=== PATIENT | female | born 1980 | race Caucasian/White ===

== ENCOUNTER 2017-08-08 17:25 | Emergency (ER) | payer BC ==
[2017-08-08 17:37] VITALS: TEMP 99
[2017-08-08] MEDS ORDERED: RX INFO: IV CONTRAST WAS GIVEN 1 EACH MISC MISCELLANE PRN (17:44)
[2017-08-08] MEDS ORDERED: SODIUM CHLORIDE 0.9% 500 ML IV STA (17:44)
[2017-08-08 17:47] VITALS: RESP 16
[2017-08-08] MEDS ORDERED: MORPHINE SULFATE/PF 10MG/10ML VL IVP STA (18:16)
[2017-08-08] MEDS ORDERED: ONDANSETRON 4 MG/2 ML VIAL IVP STA (18:16)
[2017-08-08 18:32] LABS: Appearance,Urine Clear (Clear); Bilirubin,Urine Negative (Negative); Blood,Urine Moderate (Negative); Color,Urine Yellow; Glucose,Urine (UA) Negative (Negative); Ketones,Urine Negative (Negative); Leukocyte Esterase,Urine Negative (Negative); Nitrite,Urine Negative (Negative); PH, Urine 6.5 (5.0-8.0); Protein,Urine Negative (Negative); RBC,Urine >182 /hpf (0-5); Specific Gravity,Urine 1.012 (1.001-1.035); Squamous Epithelial Cell,Urine <1 /hpf (0-4); Urobilinogen,Urine <2.0 mg/dL (<2.0); WBC,Urine 4 /hpf (0-5)
[2017-08-08 18:40] LABS: Basophils % (A) 1 %; Eosinophils # (A) 0.1 k/uL (0-0.7); Eosinophils % (A) 2 %; HCT 35.3 % (34.0-46.0); HGB 11.1 gm/dL (11.4-16.0); Hypochromasia Slight; Lymphocytes # (A) 1.1 k/uL (1.0-4.8); Lymphocytes % (A) 23 %; MCHC 31.5 g/dL (31.0-37.0); MCV 79.3 fL (80.0-100.0); Mean Platelet Volume 7.9; Monocytes # (A) 0.6 k/uL (0-1.0); Monocytes % (A) 14 %; Neutrophils # (A) 2.6 k/uL (1.3-7.7); Neutrophils % (A) 56 %; Platelet Count 244 k/uL (150-450); RBC 4.45 m/uL (3.80-5.40); RDW 14.7 % (11.5-15.5); WBC 4.6 k/uL (3.8-10.6)
[2017-08-08 18:49] LABS: ALT 79 U/L (9-52); AST 57 U/L (14-36); Albumin 4.1 g/dL (3.5-5.0); Alkaline Phosphatase 81 U/L (38-126); Amylase 91 U/L (30-110); Anion Gap 15 mmol/L; Blood Urea Nitrogen 13 mg/dL (7-17); Calcium 8.9 mg/dL (8.4-10.2); Carbon Dioxide 20 mmol/L (22-30); Chloride 106 mmol/L (98-107); Glucose 88 mg/dL (74-99); Lipase 175 U/L (23-300); Sodium 141 mmol/L (137-145); Total Bilirubin 0.2 mg/dL (0.2-1.3); Total Protein 7.4 g/dL (6.3-8.2)
--- NOTE | 2017-08-08 19:16 | ED ---
Abdominal Pain HPI - General Chief Complaint: Abdominal Pain Stated Complaint: poss appendicitis Time Seen by Provider: 08/08/17 17:43 Source: patient, RN notes reviewed Mode of arrival: wheelchair Limitations: no limitations - History of Present Illness Initial Comments: 37-year-old female presents emergency Department with chief complaint of abdominal pain. She states she's been having some worsening pain in the right side. She states that the last 2 days and worse. She states she fell that she had a fever at home. Does admit to some nausea no vomiting no diarrhea no constipation. No dysuria, hematuria. Patient states that she's had a prior ovarian cysts in the past but nothing recent. Patient states that she's had 2 prior sections denies any chance currently in mental cycle. No history kidney stones. - Related Data Home Medications Medication Instructions Recorded Confirmed Ibuprofen [Motrin Ib] 400 mg PO Q6H PRN 08/08/17 08/08/17 Previous Rx's Medication Instructions Recorded Hydrocodone/Acetaminophen [[place] 1 tab PO Q6HR PRN #20 tab 08/08/17 5-325] Ibuprofen [Motrin] 600 mg PO Q8HR PRN #30 tab 08/08/17 Allergies Allergy/AdvReac Type Severity Reaction Status Date / Time bacitracin Allergy Rash/Hives Verified 08/08/17 18:05 [From Neosporin ([id number])] neomycin Allergy Rash/Hives Verified 08/08/17 18:05 [From Neosporin ([id number])] polymyxin B Allergy Rash/Hives Verified 08/08/17 18:05 [From Neosporin ([id number])] Review of Systems ROS Statement: Those systems with pertinent positive or pertinent negative responses have been documented in the HPI. ROS Other: All systems not noted in ROS Statement are negative. Past Medical History Past Medical History: No Reported History History of Any Multi-Drug Resistant Organisms: None Reported Past Surgical History: Section Additional Past Surgical History / Comment(s): wisdom teeth removal Past Psychological History: No Psychological Hx Reported Smoking Status: Never smoker Past Alcohol Use History: Occasional Past Drug Use History: None Reported General Exam Limitations: no limitations General appearance: alert, in no apparent distress Head exam: Present: atraumatic, normocephalic, normal inspection Respiratory exam: Present: normal lung sounds bilaterally. Absent: respiratory distress, wheezes, rales, rhonchi, stridor Cardiovascular Exam: Present: regular rate, normal rhythm, normal heart sounds. Absent: systolic murmur, diastolic murmur, rubs, gallop, clicks GI/Abdominal exam: Present: soft, tenderness (Moderate tenderness right lower quadrant), normal bowel sounds. Absent: distended, guarding, rebound, rigid Back exam: Absent: CVA tenderness (R), CVA tenderness (L) Skin exam: Present: warm, dry, intact, normal color. Absent: rash Course Vital Signs 08/08/17 08/08/17 17:33 17:46 Temperature 99 F Pulse Rate 101 H 94 Respiratory 18 16 Rate Blood Pressure 145/79 149/97 O2 Sat by Pulse 100 99 Oximetry Medical Decision Making - Medical Decision Making 37-year-old female presents from for right-sided abdominal pain. Patient states she's had pain for last couple weeks for worsen or last few days. She states it does wax and wane. She does feel improved at this time CT shows evidence of ovarian cyst no evidence of acute appendicitis. Patient given pain medication advised follow-up with [employer]. - Lab Data Result diagrams: 08/08/17 18:23 08/08/17 18:23 Lab Results 08/08/17 08/08/17 08/08/17 Range/Units 18:20 18:20 18:23 WBC (3.8-10.6) k/uL RBC (3.80-5.40) m/uL Hgb (11.4-16.0) gm/dL Hct (34.0-46.0) % MCV (80.0-100.0) fL MCH (25.0-35.0) pg MCHC (31.0-37.0) g/dL RDW (11.5-15.5) % Plt Count (150-450) k/uL Neutrophils % % Lymphocytes % % Monocytes % % Eosinophils % % Basophils % % Neutrophils # (1.3-7.7) k/uL Lymphocytes # (1.0-4.8) k/uL Monocytes # (0-1.0) k/uL Eosinophils # (0-0.7) k/uL Basophils # (0-0.2) k/uL Hypochromasia Sodium 141 (137-145) mmol/L Potassium 4.0 (3.5-5.1) mmol/L Chloride 106 (98-107) mmol/L Carbon Dioxide 20 L (22-30) mmol/L Anion Gap 15 mmol/L BUN 13 (7-17) mg/dL Creatinine 0.80 (0.52-1.04) mg/dL Est GFR (CKD-EPI)AfAm >90 (>60 ml/min/1.73 sqM) Est GFR (CKD-EPI)NonAf >90 (>60 ml/min/1.73 sqM) Glucose 88 (74-99) mg/dL Calcium 8.9 (8.4-10.2) mg/dL Total Bilirubin 0.2 (0.2-1.3) mg/dL AST 57 H (14-36) U/L ALT 79 H (9-52) U/L Alkaline Phosphatase 81 (38-126) U/L Total Protein 7.4 (6.3-8.2) g/dL Albumin 4.1 (3.5-5.0) g/dL Amylase 91 (30-110) U/L Lipase 175 (23-300) U/L Urine Color Yellow Urine Appearance Clear (Clear) Urine pH 6.5 (5.0-8.0) Ur Specific [place] 1.012 (1.001-1.035) Urine Protein Negative (Negative) Urine Glucose (UA) Negative (Negative) Urine Ketones Negative (Negative) Urine Blood Moderate H (Negative) Urine Nitrite Negative (Negative) Urine Bilirubin Negative (Negative) Urine Urobilinogen <2.0 (<2.0) mg/dL Ur Leukocyte Esterase Negative (Negative) Urine RBC >182 H (0-5) /hpf Urine WBC 4 (0-5) /hpf Ur Squamous Epith Cells <1 (0-4) /hpf Urine HCG, Qual Not Detected (Not Detectd) 08/08/17 Range/Units 18:23 WBC 4.6 (3.8-10.6) k/uL RBC 4.45 (3.80-5.40) m/uL Hgb 11.1 L (11.4-16.0) gm/dL Hct 35.3 (34.0-46.0) % MCV 79.3 L (80.0-100.0) fL MCH 25.0 (25.0-35.0) pg MCHC 31.5 (31.0-37.0) g/dL RDW 14.7 (11.5-15.5) % Plt Count 244 (150-450) k/uL Neutrophils % 56 % Lymphocytes % 23 % Monocytes % 14 % Eosinophils % 2 % Basophils % 1 % Neutrophils # 2.6 (1.3-7.7) k/uL Lymphocytes # 1.1 (1.0-4.8) k/uL Monocytes # 0.6 (0-1.0) k/uL Eosinophils # 0.1 (0-0.7) k/uL Basophils # 0.0 (0-0.2) k/uL Hypochromasia Slight Sodium (137-145) mmol/L Potassium (3.5-5.1) mmol/L Chloride (98-107) mmol/L Carbon Dioxide (22-30) mmol/L Anion Gap mmol/L BUN (7-17) mg/dL Creatinine (0.52-1.04) mg/dL Est GFR (CKD-EPI)AfAm (>60 ml/min/1.73 sqM) Est GFR (CKD-EPI)NonAf (>60 ml/min/1.73 sqM) Glucose (74-99) mg/dL Calcium (8.4-10.2) mg/dL Total Bilirubin (0.2-1.3) mg/dL AST (14-36) U/L ALT (9-52) U/L Alkaline Phosphatase (38-126) U/L Total Protein (6.3-8.2) g/dL Albumin (3.5-5.0) g/dL Amylase (30-110) U/L Lipase (23-300) U/L Urine Color Urine Appearance (Clear) Urine pH (5.0-8.0) Ur Specific [place] (1.001-1.035) Urine Protein (Negative) Urine Glucose (UA) (Negative) Urine Ketones (Negative) Urine Blood (Negative) Urine Nitrite (Negative) Urine Bilirubin (Negative) Urine Urobilinogen (<2.0) mg/dL Ur Leukocyte Esterase (Negative) Urine RBC (0-5) /hpf Urine WBC (0-5) /hpf Ur Squamous Epith Cells (0-4) /hpf Urine HCG, Qual (Not Detectd) Disposition Clinical Impression: Ovarian cyst Disposition: HOME SELF-CARE Condition: Stable Instructions: Ovarian Cyst (ED) Additional Instructions: Please return to the Emergency Department if symptoms worsen or any other concerns. Prescriptions: Hydrocodone/Acetaminophen [[place] 5-325] 1 tab PO Q6HR PRN #20 tab PRN Reason: Pain Ibuprofen [Motrin] 600 mg PO Q8HR PRN #30 tab PRN Reason: Pain Referrals: Adrian Martinez DO [Primary Care Provider] - 1-2 days Time of Disposition: 19:41
--- NOTE | 2017-08-08 19:24 | CT ---
EXAMINATION TYPE: CT abdomen pelvis w con DATE OF EXAM: 08/08/2017 COMPARISON: NONE HISTORY: Right lower quadrant pain CT DLP: mGycm Automated exposure control for dose reduction was used. TECHNIQUE: Helical acquisition of images was performed from the lung bases through the pelvis. CONTRAST: IV contrast Isovue 100 mL. FINDINGS: Lung bases are clear. There is no pleural effusion. There is no pericardial effusion. Liver spleen pancreas gallbladder appear normal. Bile ducts are not dilated. There is no adrenal mass. Kidneys show satisfactory contrast opacification. There is no hyd ronephrosis. There is no retroperitoneal adenopathy. I see no intestinal wall thickening. There are no dilated loops. Uterus is anteverted. Lumbar spine i s intact. I see no bony destructive process. There is no ascites. There is no sign of a pelvic mass. The appendix appears normal. There is a 1.5 c m cyst on the right ovary. There is no evidence of a hernia. IMPRESSION: NEGATIVE CT SCAN OF THE ABDOMEN AND PELVIS. NORMAL APPENDIX. I DO NOT SEE A CAUSE FOR RIGHT LOWER JIN DRANT PAIN.
[2017-08-08 19:55] VITALS: BP 104/65; PULSE 75
== END 2017-08-08 19:55 | disposition home or self-care (01) ==
LOC: EC 17:25
DX: N83.201 Unspecified ovarian cyst, right side (principal); Z88.1 Allergy status to other antibiotic agents
CPT/HCPCS: 36415; 80053; 82150; 83690; 85025; 81001; 81025; 74177; 99284; 96374; 96375; J2405; Q9967; J2270

== ENCOUNTER 2017-08-26 18:00 | Emergency (ER) | payer BC ==
[2017-08-26 18:16] VITALS: PULSE 86; RESP 20; TEMP 97.8
[2017-08-26] MEDS ORDERED: KETOROLAC 30 MG/ML 1 ML VIAL IVP STA (18:42)
--- NOTE | 2017-08-26 18:46 | ED ---
Abdominal Pain HPI - General Chief Complaint: Abdominal Pain Stated Complaint: abd pain Time Seen by Provider: 08/26/17 18:30 Source: patient, RN notes reviewed Mode of arrival: ambulatory Limitations: no limitations - History of Present Illness Initial Comments: This is a 37-year-old female who presents to the emergency department with chief complaint of abdominal pain. Patient states that she was evaluated last month here in the emergency department for right lower quadrant abdominal pain. She states that she was diagnosed with a right ovarian cyst. She followed up with her COMPUTER FIELD TECHNICIAN, Dr. Baum and had an ultrasound performed last . Patient states that her right lower quadrant pain has progressively worsened throughout the day today. She states that now the pain involves the LLQ as well. She describes it as constant and crampy with intermittent sharp shooting pains that radiate to her inner thighs. She states the pain is made worse with any movement. Last menstrual period was August 04. Denies fevers or chills, shortness of breath or chest pain, nausea or vomiting, diarrhea or constipation , dysuria or hematuria. - Related Data Previous Rx's Medication Instructions Recorded Hydrocodone/Acetaminophen [[place] 1 tab PO Q6HR PRN #20 tab 08/08/17 5-325] Ibuprofen [Motrin] 600 mg PO Q8HR PRN #30 tab 08/08/17 Allergies Allergy/AdvReac Type Severity Reaction Status Date / Time bacitracin Allergy Rash/Hives Verified 08/26/17 19:14 [From Neosporin ([id number])] neomycin Allergy Rash/Hives Verified 08/26/17 19:14 [From Neosporin ([id number])] polymyxin B Allergy Rash/Hives Verified 08/26/17 19:14 [From Neosporin ([id number])] Review of Systems ROS Statement: Those systems with pertinent positive or pertinent negative responses have been documented in the HPI. ROS Other: All systems not noted in ROS Statement are negative. Past Medical History Past Medical History: No Reported History History of Any Multi-Drug Resistant Organisms: None Reported Past Surgical History: Section Additional Past Surgical History / Comment(s): wisdom teeth removal Past Psychological History: No Psychological Hx Reported Smoking Status: Never smoker Past Alcohol Use History: Occasional Past Drug Use History: None Reported General Exam - General Exam Comments Initial Comments: General: Awake and alert, well-developed; in no apparent distress. Lying in the position on ED stretcher. HEENT: Head atraumatic, normocephalic. Pupils are equal, round and reactive to light. Extraocular movements intact. Oropharynx moist without erythema or exudate. Neck: Supple. Normal ROM. Cardiovascular: Regular rate and rhythm. No murmurs, rubs or gallops. Chest symmetrical. Respiratory: Lungs clear to auscultation bilaterally. No wheezes, rales or rhonchi. Normal respiratory effort with no use of accessory muscles. Abdomen: Soft, non-distended. Tenderness on palpation of right lower quadrant with guarding. No rebound or rigidity. Normal bowel sounds in all 4 quadrants. Musculoskeletal: Normal ROM, no tenderness bilateral upper and lower extremities. Skin: [employer], warm and dry without rashes or lesions. Neurological: Alert and oriented x3. CN II-XII grossly intact. Speech is fluent and answers are appropriate. No focal neuro deficits. Psychiatric: Normal mood and affect. No overt signs of depression or anxiety noted. Limitations: no limitations Course Vital Signs 08/26/17 08/26/17 18:13 20:27 Temperature 97.8 F Pulse Rate 86 Respiratory 20 Rate Blood Pressure 139/82 106/66 O2 Sat by Pulse 99 Oximetry Medical Decision Making - Medical Decision Making This is a 37-year-old female who presents to the emergency department with chief complaint of pelvic pain. Patient was diagnosed with a right ovarian cyst on 08/08/2017. She followed up with OB and an ultrasound was obtained last . She was diagnosed with a complex cyst of the left ovary. Today patient complains of right lower and left lower quadrant pain. A transvaginal ultrasound was repeated. This revealed evidence for a nonspecific left ovarian cyst without evidence for torsion. Patient's vital signs are stable and she is in no acute distress. She'll be discharged home at this time. Recommended following up with her COMPUTER FIELD TECHNICIAN. She is in agreement voices understanding. All questions were answered. - Lab Data Result diagrams: 08/26/17 19:00 08/26/17 19:00 Lab Results 08/26/17 08/26/17 08/26/17 Range/Units 19:00 19:00 19:00 WBC 7.5 (3.8-10.6) k/uL RBC 4.54 (3.80-5.40) m/uL Hgb 11.0 L (11.4-16.0) gm/dL Hct 35.4 (34.0-46.0) % MCV 78.1 L (80.0-100.0) fL MCH 24.3 L (25.0-35.0) pg MCHC 31.2 (31.0-37.0) g/dL RDW 15.0 (11.5-15.5) % Plt Count 357 (150-450) k/uL Neutrophils % 55 % Lymphocytes % 32 % Monocytes % 8 % Eosinophils % 2 % Basophils % 1 % Neutrophils # 4.2 (1.3-7.7) k/uL Lymphocytes # 2.4 (1.0-4.8) k/uL Monocytes # 0.6 (0-1.0) k/uL Eosinophils # 0.2 (0-0.7) k/uL Basophils # 0.1 (0-0.2) k/uL Hypochromasia Slight Sodium 140 (137-145) mmol/L Potassium 4.1 (3.5-5.1) mmol/L Chloride 105 (98-107) mmol/L Carbon Dioxide 21 L (22-30) mmol/L Anion Gap 14 mmol/L BUN 17 (7-17) mg/dL Creatinine 0.73 (0.52-1.04) mg/dL Est GFR (CKD-EPI)AfAm >90 (>60 ml/min/1.73 sqM) Est GFR (CKD-EPI)NonAf >90 (>60 ml/min/1.73 sqM) Glucose 88 (74-99) mg/dL Calcium 9.2 (8.4-10.2) mg/dL Total Bilirubin 0.2 (0.2-1.3) mg/dL AST 25 (14-36) U/L ALT 30 (9-52) U/L Alkaline Phosphatase 74 (38-126) U/L Total Protein 7.3 (6.3-8.2) g/dL Albumin 4.0 (3.5-5.0) g/dL Amylase 94 (30-110) U/L Lipase 164 (23-300) U/L Urine Color Urine Appearance (Clear) Urine pH (5.0-8.0) Ur Specific [place] (1.001-1.035) Urine Protein (Negative) Urine Glucose (UA) (Negative) Urine Ketones (Negative) Urine Blood (Negative) Urine Nitrite (Negative) Urine Bilirubin (Negative) Urine Urobilinogen (<2.0) mg/dL Ur Leukocyte Esterase (Negative) Urine HCG, Qual Not Detected (Not Detectd) 08/26/17 Range/Units 19:00 WBC (3.8-10.6) k/uL RBC (3.80-5.40) m/uL Hgb (11.4-16.0) gm/dL Hct (34.0-46.0) % MCV (80.0-100.0) fL MCH (25.0-35.0) pg MCHC (31.0-37.0) g/dL RDW (11.5-15.5) % Plt Count (150-450) k/uL Neutrophils % % Lymphocytes % % Monocytes % % Eosinophils % % Basophils % % Neutrophils # (1.3-7.7) k/uL Lymphocytes # (1.0-4.8) k/uL Monocytes # (0-1.0) k/uL Eosinophils # (0-0.7) k/uL Basophils # (0-0.2) k/uL Hypochromasia Sodium (137-145) mmol/L Potassium (3.5-5.1) mmol/L Chloride (98-107) mmol/L Carbon Dioxide (22-30) mmol/L Anion Gap mmol/L BUN (7-17) mg/dL Creatinine (0.52-1.04) mg/dL Est GFR (CKD-EPI)AfAm (>60 ml/min/1.73 sqM) Est GFR (CKD-EPI)NonAf (>60 ml/min/1.73 sqM) Glucose (74-99) mg/dL Calcium (8.4-10.2) mg/dL Total Bilirubin (0.2-1.3) mg/dL AST (14-36) U/L ALT (9-52) U/L Alkaline Phosphatase (38-126) U/L Total Protein (6.3-8.2) g/dL Albumin (3.5-5.0) g/dL Amylase (30-110) U/L Lipase (23-300) U/L Urine Color Yellow Urine Appearance Clear (Clear) Urine pH 6.0 (5.0-8.0) Ur Specific [place] 1.027 (1.001-1.035) Urine Protein Trace H (Negative) Urine Glucose (UA) Negative (Negative) Urine Ketones Negative (Negative) Urine Blood Negative (Negative) Urine Nitrite Negative (Negative) Urine Bilirubin Negative (Negative) Urine Urobilinogen <2.0 (<2.0) mg/dL Ur Leukocyte Esterase Negative (Negative) Urine HCG, Qual (Not Detectd) - Radiology Data Radiology results: report reviewed Transvaginal ultrasound impression: 1. Nonspecific left ovarian cyst with no evidence for torsion. 2. Fluid within the cul-de-sac. Disposition Clinical Impression: Ovarian cyst Disposition: HOME SELF-CARE Condition: Good Instructions: Ovarian Cyst (ED) Additional Instructions: Please follow-up with COMPUTER FIELD TECHNICIAN as scheduled. Please follow up with primary care provider within 1-2 days. Return to emergency department if symptoms should worsen or any concerns arise. Is patient prescribed a controlled substance at discharge?: No Referrals: Adrian Martinez DO [Primary Care Provider] - 1-2 days Time of Disposition: 21:00
[2017-08-26 19:12] LABS: Appearance,Urine Clear (Clear); Bilirubin,Urine Negative (Negative); Blood,Urine Negative (Negative); Color,Urine Yellow; Glucose,Urine (UA) Negative (Negative); Ketones,Urine Negative (Negative); Leukocyte Esterase,Urine Negative (Negative); Nitrite,Urine Negative (Negative); Protein,Urine Trace (Negative); Specific Gravity,Urine 1.027 (1.001-1.035); Urobilinogen,Urine <2.0 mg/dL (<2.0)
[2017-08-26 19:13] LABS: Basophils # (A) 0.1 k/uL (0-0.2); Basophils % (A) 1 %; Eosinophils # (A) 0.2 k/uL (0-0.7); Eosinophils % (A) 2 %; HCT 35.4 % (34.0-46.0); Hypochromasia Slight; Lymphocytes # (A) 2.4 k/uL (1.0-4.8); Lymphocytes % (A) 32 %; MCH 24.3 pg (25.0-35.0); MCHC 31.2 g/dL (31.0-37.0); MCV 78.1 fL (80.0-100.0); Monocytes # (A) 0.6 k/uL (0-1.0); Monocytes % (A) 8 %; Neutrophils # (A) 4.2 k/uL (1.3-7.7); Neutrophils % (A) 55 %; Platelet Count 357 k/uL (150-450); RBC 4.54 m/uL (3.80-5.40); WBC 7.5 k/uL (3.8-10.6)
[2017-08-26 19:39] LABS: ALT 30 U/L (9-52); AST 25 U/L (14-36); Alkaline Phosphatase 74 U/L (38-126); Amylase 94 U/L (30-110); Anion Gap 14 mmol/L; Blood Urea Nitrogen 17 mg/dL (7-17); Calcium 9.2 mg/dL (8.4-10.2); Carbon Dioxide 21 mmol/L (22-30); Chloride 105 mmol/L (98-107); Glucose 88 mg/dL (74-99); Lipase 164 U/L (23-300); Potassium 4.1 mmol/L (3.5-5.1); Sodium 140 mmol/L (137-145); Total Bilirubin 0.2 mg/dL (0.2-1.3); Total Protein 7.3 g/dL (6.3-8.2)
[2017-08-26 20:27] VITALS: BP 106/66
--- NOTE | 2017-08-26 20:33 | US ---
EXAMINATION TYPE: US transvaginal DATE OF EXAM: 08/26/2017 COMPARISON: NONE CLINICAL HISTORY: pelvic pain. Pelvic pain TECHNIQUE: Transvaginal (TV). EXAM MEASUREMENTS: Uterus: 9.9 x 4.5 x 3.2 cm Endometrial Stripe: 0.6 cm Right Ovary: 2.7 x 1.6 x 1.7 cm Left Ovary: 3.6 x 3.1 x 2.8 cm 1. Uterus: Anteverted 2. Endometrium: wnl 3. Right Ovary: wnl 4. Left Ovary: Cystic area seen measuring 1.9 x 2.1 x 1.8cm Spectral, color and waveform doppler imaging shows good arterial and venous flow within the ovaries ; there is no evidence for ovarian torsion. 5. Bilateral Adnexa: wnl 6. Posterior cul-de-sac: Fluid seen Left ovary cystic area seen measuring 1.9 x 2.1 x 1.8 cm. IMPRESSION: 1. Nonspecific Left ovarian cyst without evidence for torsion. 2. Fluid within the cul-de-sac.
== END 2017-08-26 21:19 | disposition home or self-care (01) ==
LOC: EC 18:00
DX: N83.202 Unspecified ovarian cyst, left side (principal); N83.201 Unspecified ovarian cyst, right side; Z88.1 Allergy status to other antibiotic agents
CPT/HCPCS: 36415; 80053; 82150; 83690; 85025; 81003; 81025; 93975; 76830; 99284; 96374; J1885

== ENCOUNTER 2018-08-29 22:36 | Emergency (ER) | payer BC ==
[2018-08-29 22:50] VITALS: BP 125/93; PULSE 78; RESP 20; TEMP 97.8
[2018-08-29] MEDS ORDERED: ACETAMINOPHEN TAB 500 MG TAB PO STA (23:22)
[2018-08-29] MEDS ORDERED: IBUPROFEN 600 MG TAB PO STA (23:22)
--- NOTE | 2018-08-29 23:46 | XR ---
EXAM: XR Left Elbow Complete, 3 or More Views CLINICAL HISTORY: ITS.REASON XR Reason: Pain TECHNIQUE: Frontal, lateral and oblique views of the left elbow. COMPARISON: No relevant prior studies available. FINDINGS: Bones/joints: Subtle cortical irregularity along the radial neck likely reflects a nondisplaced fracture.. No acute fracture. No dislocation. Soft tissues: Left elbow effusion. IMPRESSION: Suspected nondisplaced fracture of the left radial neck, accounting for elbow effusion.
--- NOTE | 2018-08-30 00:15 | ED ---
Upper Extremity HPI - General Source: patient Mode of arrival: ambulatory <Monae Fournier - Last Filed: 08/30/18 03:24> <Judith Varghese - Last Filed: 08/31/18 03:04> - General Chief Complaint: Extremity Injury, Upper Stated Complaint: Lt Arm Injury Time Seen by Provider: 08/29/18 23:07 - History of Present Illness Initial Comments: 38-year-old female patient presents to the emergency department today for evaluation of left elbow pain and swelling after experiencing a fall on roller skates. Patient states that she was roller skating around 3:30 this afternoon when she fell backwards touching herself with her left elbow. Patient states she has been having pain since in the elbow has been swelling. She denies any numbness or tingling to the arm. Patient states she is able to fully extend the elbow. She reports mild discomfort of the shoulder but denies any tenderness or difficulty with range of motion of the shoulder. Denies hitting her head or losing consciousness during the accident. Patient denies any headache, neck pain, back pain, chest pain, shortness of breath, dizziness, weakness, abdominal pain, nausea, vomiting, or difficulties with bowel movements or urination. (Monae Fournier) - Related Data Previous Rx's Medication Instructions Recorded Hydrocodone/Acetaminophen [[place] 1 tab PO Q6HR PRN #12 tab 08/30/18 5-325] Allergies Allergy/AdvReac Type Severity Reaction Status Date / Time bacitracin Allergy Rash/Hives Verified 08/26/17 19:14 [From Neosporin ([id number])] neomycin Allergy Rash/Hives Verified 08/26/17 19:14 [From Neosporin ([id number])] polymyxin B Allergy Rash/Hives Verified 08/26/17 19:14 [From Neosporin ([id number])] Review of Systems ROS Other: All systems not noted in ROS Statement are negative. <Monae Fournier - Last Filed: 08/30/18 03:24> ROS Other: All systems not noted in ROS Statement are negative. <Judith Varghese - Last Filed: 08/31/18 03:04> ROS Statement: Those systems with pertinent positive or pertinent negative responses have been documented in the HPI. Past Medical History Past Medical History: No Reported History History of Any Multi-Drug Resistant Organisms: None Reported Past Surgical History: Section, Hysterectomy Additional Past Surgical History / Comment(s): wisdom teeth removal Past Psychological History: No Psychological Hx Reported Smoking Status: Never smoker Past Alcohol Use History: Rare Past Drug Use History: None Reported <Monae Fournier - Last Filed: 08/30/18 03:24> General Exam General appearance: alert, in no apparent distress, other (Physical well- developed, well-nourished adult female patient in no acute distress. Vital signs upon presentation are temperature 97.8F, pulse 78, respirations 20, blood pressure 125/93, pulse ox 100% on room air.) Eye exam: Present: normal appearance, PERRL, EOMI. Absent: scleral icterus, conjunctival injection, periorbital swelling ENT exam: Present: normal exam, normal oropharynx, mucous membranes moist Neck exam: Present: normal inspection, full ROM, other (Nontender, no step-off, no deformity to firm midline palpation of the posterior cervical spine. Full range of motion without pain or limitation.). Absent: tenderness, meningismus, lymphadenopathy Respiratory exam: Present: normal lung sounds bilaterally. Absent: respiratory distress, wheezes, rales, rhonchi, stridor Cardiovascular Exam: Present: regular rate, normal rhythm, normal heart sounds. Absent: systolic murmur, diastolic murmur, rubs, gallop, clicks Extremities exam: Present: full ROM, tenderness (Tenderness over the medial lateral elbow), normal capillary refill, other (Patient has left elbow swelling noted. Skin to the left arm is pink, warm, dry. Cap refills less than 3 seconds. Radial pulses 2+ and equal bilaterally. There is no evidence for median, ulnar, radial nerve dysfunction.). Absent: normal inspection, pedal edema, joint swelling, calf tenderness Back exam: Present: normal inspection, other (Nontender, no step-off, no deformi ty to firm midline palpation of the thoracic and lumbar vertebrae. Full range of motion without pain or limitation.). Absent: vertebral tenderness Neurological exam: Present: alert, oriented X3, CN II-XII intact Psychiatric exam: Present: normal affect, normal mood Skin exam: Present: warm, dry, intact, normal color. Absent: rash <Monae Fournier - Last Filed: 08/30/18 03:24> Course Vital Signs 08/29/18 22:46 Temperature 97.8 F Pulse Rate 78 Respiratory 20 Rate Blood Pressure 125/93 O2 Sat by Pulse 100 Oximetry Procedures - Orthopedic Splinting/Casting Injury #1 Side: left Upper Extremity Injury Location: long arm, elbow Upper Extremity Immobilizer: sling/shoulder immobilizer, posterior splint, Carl wrap <Monae Fournier - Last Filed: 08/30/18 03:24> - Orthopedic Splinting/Casting Injury #1 Additional Comments: Left arm was well padded with web roll. Neurovascular status intact after splint application, skin is pink, warm, dry. Cap refills less than 3 seconds. Radial pulses 2+. (Monae Fournier) Medical Decision Making - Radiology Data Radiology results: report reviewed, image reviewed <Monae Fournier - Last Filed: 08/30/18 03:24> <Judith Varghese - Last Filed: 08/31/18 03:04> - Medical Decision Making 38-year-old female patient presented to the emergency department today for evaluation of left elbow pain after experiencing a fall from over skates. Physical examination did reveal left elbow swelling. Should have full range of motion but with pain. Neurovascular status was intact to the upper extremity. X-ray was obtained and showed suspected left radial neck fracture with joint effusion. Patient was placed in a posterior OCL splint, placed in a sling. She is instructed to follow-up with orthopedics for further evaluation as soon as possible. She'll be given [place] for pain control. Return parameters discussed in detail. She verbalizes understanding and agrees with this plan. (Monae Fournier) I was available for consultation in the emergency department. The history and p hysical exam were done by the midlevel provider. I was consulted for this patient's care. I reviewed the case with the midlevel provider and based on their presentation of the patient, I agree with the assessment, medical decision making and plan of care as documented. (Judith Varghese) - Radiology Data 3 views of the left upper obtained. Report was reviewed in its entirety. Impression by Dr. Roberson shows suspected nondisplaced fracture of the left radial neck, constant for elbow effusion. (Monae Fournier) Disposition Is patient prescribed a controlled substance at d/c from ED?: No Time of Disposition: 00:15 <Monae Fournier - Last Filed: 08/30/18 03:24> <Judith Varghese - Last Filed: 08/31/18 03:04> Clinical Impression: Left radial head fracture Disposition: HOME SELF-CARE Condition: Good Instructions (If sedation given, give patient instructions): Elbow Fracture (ED) Additional Instructions: Keep splint in place until follow-up with orthopedics. Apply ice 20 minutes at a time at least 4 times daily. Use sling for comfort and support. Follow-up with orthopedics for recheck as soon as possible. Return to the emergency department immediately for any new, worsening, or concerning symptoms. Prescriptions: Hydrocodone/Acetaminophen [[place] 5-325] 1 tab PO Q6HR PRN #12 tab PRN Reason: Pain Referrals: Adrian Martinez DO [Primary Care Provider] - 1-2 days
== END 2018-08-30 00:41 | disposition home or self-care (01) ==
LOC: EC 22:36
DX: S52.122A Displaced fracture of head of left radius, initial encounter for closed fracture (principal); Z88.1 Allergy status to other antibiotic agents; W01.0XXA Fall on same level from slipping, tripping and stumbling without subsequent striking against object, initial encounter; Y93.51 Activity, roller skating (inline) and skateboarding; Y92.331 Roller skating rink as the place of occurrence of the external cause
CPT/HCPCS: 29105; 99283

== ENCOUNTER 2024-03-14 10:48 | Emergency (ER) | payer BC ==
--- NOTE | 2024-03-14 11:22 | ED ---
General Adult HPI - General Chief complaint: Chest Pain Stated complaint: Chest pain Time Seen by Provider: 03/14/24 11:05 Source: patient Mode of arrival: ambulatory Limitations: no limitations - History of Present Illness Initial comments: Dictation was produced using [employer] dictation software. please excuse any grammatical, word or spelling errors. Chief Complaint: 44-year-old chest pain History of Present Illness: Patient is a 44-year-old female denies any significant comorbidities. States that she has some chest pain. Feels sharp worse when she takes a deep breath or presses on her chest. Denies that it is a pressure that radiates down the arm. No associated diaphoresis or nausea. Patient does not have any coronary artery disease. States that there is extensive family history of heart attacks and diabetes. The ROS documented in this emergency department record has been reviewed and confirmed by me. Those systems with pertinent positive or negative responses have been documented in the HPI. All other systems are other negative and/or noncontributory. - Related Data Previous Rx's Medication Instructions Recorded Hydrocodone/Acetaminophen [[place] 1 tab PO Q6HR PRN #12 tab 08/30/18 5-325] Ketorolac [Toradol] 10 mg PO Q6HR PRN 3 Days #12 tab 03/14/24 Allergies Allergy/AdvReac Type Severity Reaction Status Date / Time bacitracin Allergy Rash/Hives Verified 03/14/24 10:58 [From Neosporin ([id number])] neomycin Allergy Rash/Hives Verified 03/14/24 10:58 [From Neosporin ([id number])] polymyxin B Allergy Rash/Hives Verified 03/14/24 10:58 [From Neosporin ([id number])] Review of Systems ROS Statement: Those systems with pertinent positive or pertinent negative responses have been documented in the HPI. ROS Other: All systems not noted in ROS Statement are negative. Past Medical History Past Medical History: No Reported History History of Any Multi-Drug Resistant Organisms: None Reported Past Surgical History: Section, Hysterectomy Additional Past Surgical History / Comment(s): wisdom teeth removal Past Psychological History: No Psychological Hx Reported Smoking Status: Never smoker Past Alcohol Use History: Rare Past Drug Use History: None Reported General Exam - General Exam Comments Initial Comments: PHYSICAL EXAM: General Impression: Alert and oriented x3, not in acute distress HEENT: Normocephalic atraumatic, extra-ocular movements intact, pupils equal and reactive to light bilaterally, mucous membranes moist. Cardiovascular: Heart regular rate and rhythm Chest: Able to complete full sentences, no retractions, no tachypnea, palpatory tenderness to the left anterior chest Abdomen: abdomen soft, non-tender, non-distended, no organomegaly Musculoskeletal: Pulses present and equal in all extremities, no peripheral edema Motor: no focal deficits noted Neurological: CN II-XII grossly intact, no focal motor or sensory deficits noted Skin: Intact with no visualized rashes Psych: Normal affect and mood Limitations: no limitations Course Vital Signs 03/14/24 03/14/24 03/14/24 10:56 11:12 11:58 Temperature 98.2 F Pulse Rate 90 91 Pulse Rate [ 91 [place] ] Respiratory 16 16 Rate Blood Pressure 137/97 142/103 O2 Sat by Pulse 100 98 Oximetry 03/14/24 13:00 Temperature Pulse Rate 98 Pulse Rate [ [place] ] Respiratory 16 Rate Blood Pressure 137/89 O2 Sat by Pulse 98 Oximetry EKG Findings - EKG Comments: EKG Findings:: My EKG interpretation: Ventricular rate 88, sinus rhythm,. 164, QRS 99, QTc 3 9. No AR prolongation, no QTC prolongation, no ST or T-wave changes noted. Overall, this EKG is unremarkable Medical Decision Making - Medical Decision Making Was pt. sent in by a medical professional or institution (, PA, BROOM MACHINE OPERATOR, urgent care, hospital, or long-term...) When possible be specific @ -No Did you speak to anyone other than the patient for history (EMS, parent, family, police, friend...)? What history was obtained from this source @ -No Did you review nursing and triage notes (agree or disagree)? Why? @ -I reviewed and agree with nursing and triage notes Were old charts reviewed (outside hosp., previous admission, EMS record, old EKG, old radiological studies, urgent care reports/EKG's, long-term records)? Report findings @ -No old charts were reviewed Differential Diagnosis (chest pain, altered mental status, abdominal pain women, abdominal pain men, vaginal bleeding, musculoskeletal, weakness, fever, dyspnea, syncope, headache, dizziness, GI bleed, back pain, seizure, CVA, palpatations, mental health)? @ -Differential Chest Pain: Stable Angina, Unstable Angina, STEMI, NSTEMI Aortic Dissection, Pneumothorax, Musculoskeletal, Esophageal Spasm GERD, Cholecystitis, Pancreatitis, Zoster, this is not meant to be an all-inclusive list. EKG interpreted by me (3pts min.). @ -See above X-rays interpreted by me (1pt min.). @ -Chest x-ray is nonacute CT interpreted by me (1pt min.). @ -CT angiography shows no PE U/S interpreted by me (1pt. min.). @ -None done What testing was considered but not performed or refused? (CT, X-rays, U/S, labs)? Why? @ -None What meds were considered but not given or refused? Why? @ -None Was smoking cessation discussed for >3mins.? @ -No Were there social determinants of health that impacted care today? How? (Homele ssness, low income, unemployed, alcoholism, drug addiction, transportation, low edu. Level, literacy, decrease access to med. care, detention, rehab)? @ -No Was there de-escalation of care discussed even if they declined (Discuss DNR or withdrawal of care, Hospice)? DNR status @ -No What co-morbidities impacted this encounter? (DM, HTN, Smoking, COPD, CAD, Cancer, CVA, ARF, Chemo, Hep., AIDS, mental health diagnosis, sleep apnea, morbid obesity)? @ -Family history of heart attacks Was patient admitted / discharged? Hospital course, mention meds given and route, prescriptions, significant lab abnormalities, going to OR and other pertinent info. @ -44-year-old female presents with atypical chest pain. Vital signs upon arrival are within acceptable limits. Laboratory evaluation obtained. Initial labs negative. Troponin is negative. Patient complained of severe pain. CT angiography was ordered to rule out PE or any life-threatening processes. CT angiography is negative. 2 troponins negative. Patient discharged with analgesics advised follow-up with primary care doctor. Did you discuss the management of the patient with other professionals (professionals i.e. , PA, BROOM MACHINE OPERATOR, lab, RT, psych nurse, sr. social media & mobile manager, x ray technologist, teacher, special service officer, geriatric case manager)? Give summary @ -No Was critical care preformed (if so, how long)? @ -No Undiagnosed new problem with uncertain prognosis? @ -No Drug Therapy requiring intensive monitoring for toxicity (Heparin, Nitro, Insulin, Cardizem)? @ -No Were any procedures done? @ -No Diagnosis/symptom? Acute, or Chronic, or Acute on Chronic? Uncomplicated (without systemic symptoms) or Complicated (systemic symptoms)? @ -Costochondritis Side effects of treatment? @ -No Exacerbation, Progression, or Severe Exacerbation? @ -No Poses a threat to life or bodily function? How? (Chest pain, [place], [place], pneumonia, PE, COPD, DKA, ARF, appy, cholecystitis, CVA, Diverticulitis, Homicidal, Suicidal, threat to staff... and all critical care pts) @ -No - Lab Data Result diagrams: 03/14/24 11:21 03/14/24 11:21 Lab Results 03/14/24 03/14/24 03/14/24 Range/Units 11:21 11:21 11:21 WBC 9.3 (3.8-10.6) k/uL RBC 4.67 (3.80-5.40) m/uL Hgb 14.6 (11.4-16.0) gm/dL Hct 43.3 (34.0-46.0) % MCV 92.8 (80.0-100.0) fL MCH 31.3 (25.0-35.0) pg MCHC 33.8 (31.0-37.0) g/dL RDW 13.0 (11.5-15.5) % Plt Count 316 (150-450) k/uL MPV 8.7 Neutrophils % 70 % Lymphocytes % 20 % Monocytes % 7 % Eosinophils % 2 % Basophils % 1 % Neutrophils # 6.5 (1.3-7.7) k/uL Lymphocytes # 1.9 (1.0-4.8) k/uL Monocytes # 0.7 (0-1.0) k/uL Eosinophils # 0.1 (0-0.7) k/uL Basophils # 0.1 (0-0.2) k/uL Sodium 137 (137-145) mmol/L Potassium 4.5 (3.5-5.1) mmol/L Chloride 104 (98-107) mmol/L Carbon Dioxide 26 (22-30) mmol/L Anion Gap 7 mmol/L BUN 10 (7-17) mg/dL Creatinine 0.64 (0.52-1.04) mg/dL Est GFR (CKD-EPI)AfAm >90 (>60 ml/min/1.73 sqM) Est GFR (CKD-EPI)NonAf >90 (>60 ml/min/1.73 sqM) Glucose 91 (74-99) mg/dL Calcium 9.1 (8.4-10.2) mg/dL Troponin I 0.016 (0.000-0.034) ng/mL 03/14/24 Range/Units 14:25 WBC (3.8-10.6) k/uL RBC (3.80-5.40) m/uL Hgb (11.4-16.0) gm/dL Hct (34.0-46.0) % MCV (80.0-100.0) fL MCH (25.0-35.0) pg MCHC (31.0-37.0) g/dL RDW (11.5-15.5) % Plt Count (150-450) k/uL MPV Neutrophils % % Lymphocytes % % Monocytes % % Eosinophils % % Basophils % % Neutrophils # (1.3-7.7) k/uL Lymphocytes # (1.0-4.8) k/uL Monocytes # (0-1.0) k/uL Eosinophils # (0-0.7) k/uL Basophils # (0-0.2) k/uL Sodium (137-145) mmol/L Potassium (3.5-5.1) mmol/L Chloride (98-107) mmol/L Carbon Dioxide (22-30) mmol/L Anion Gap mmol/L BUN (7-17) mg/dL Creatinine (0.52-1.04) mg/dL Est GFR (CKD-EPI)AfAm (>60 ml/min/1.73 sqM) Est GFR (CKD-EPI)NonAf (>60 ml/min/1.73 sqM) Glucose (74-99) mg/dL Calcium (8.4-10.2) mg/dL Troponin I <0.012 (0.000-0.034) ng/mL Disposition Clinical Impression: Costochondritis Disposition: HOME SELF-CARE Condition: Good Instructions (If sedation given, give patient instructions): Costochondritis (ED) Prescriptions: Ketorolac [Toradol] 10 mg PO Q6HR PRN 3 Days #12 tab PRN Reason: Pain Is patient prescribed a controlled substance at d/c from ED?: No Referrals: Adrian Martinez DO [Primary Care Provider] - 1-2 days Time of Disposition: 14:59
[2024-03-14] MEDS: KETOROLAC 15 MG/ML 1 ML VIAL IVP STA (11:24)
[2024-03-14] MEDS: LIDOCAINE 4% PATCH TOPICAL ONE (11:24)
[2024-03-14 11:38] LABS: Basophils # (A) 0.1 k/uL (0-0.2); Basophils % (A) 1 %; Eosinophils # (A) 0.1 k/uL (0-0.7); Eosinophils % (A) 2 %; HCT 43.3 % (34.0-46.0); HGB 14.6 gm/dL (11.4-16.0); Lymphocytes # (A) 1.9 k/uL (1.0-4.8); Lymphocytes % (A) 20 %; MCH 31.3 pg (25.0-35.0); MCHC 33.8 g/dL (31.0-37.0); MCV 92.8 fL (80.0-100.0); Mean Platelet Volume 8.7; Monocytes # (A) 0.7 k/uL (0-1.0); Monocytes % (A) 7 %; Neutrophils # (A) 6.5 k/uL (1.3-7.7); Neutrophils % (A) 70 %; Platelet Count 316 k/uL (150-450); RBC 4.67 m/uL (3.80-5.40); WBC 9.3 k/uL (3.8-10.6)
[2024-03-14 11:45] LABS: African American GFR (CKD) >90 (>60 ml/min/1.73 sqM); Anion Gap 7 mmol/L; Blood Urea Nitrogen 10 mg/dL (7-17); Calcium 9.1 mg/dL (8.4-10.2); Carbon Dioxide 26 mmol/L (22-30); Chloride 104 mmol/L (98-107); Glucose 91 mg/dL (74-99); Non-African American GFR(CKD) >90 (>60 ml/min/1.73 sqM); Sodium 137 mmol/L (137-145)
[2024-03-14 11:49] LABS: Potassium 4.5 mmol/L (3.5-5.1)
--- NOTE | 2024-03-14 11:51 | XR ---
EXAMINATION TYPE: XR chest 2V DATE OF EXAM: 03/14/2024 11:33 AM COMPARISON: None CLINICAL INDICATION: Female, 44 years old with history of chest pain; TECHNIQUE: XR chest 2V Frontal and lateral views of the chest. FINDINGS: Lungs/Pleura: There is no evidence of pleural effusion, focal consolidation, or pneumothorax. Pulmonary vascularity: Unremarkable. Heart/mediastinum: Cardiomediastinal silhouette is unremarkable. Musculoskeletal: No acute osseous pathology. IMPRESSION: No acute cardiopulmonary disease/process. [facility], , 03/14/2024 11:48 AM
[2024-03-14] MEDS: MORPHINE SULFATE 4 MG/ML SYRINGE IVP PRN (12:29)
--- NOTE | 2024-03-14 13:47 | CT ---
EXAMINATION TYPE: CT angio chest DATE OF EXAM: 03/14/2024 1:13 PM COMPARISON: Chest radiograph from same day. CLINICAL INDICATION: Female, 44 years old with history of chest pain. TECHNIQUE/CONTRAST: CTA scan of the thorax is performed without and with IV Contrast, patient injected with 100 ml mL of Isovue 370, MIP images are created and reviewed these are created on a separate workstation.. CT DLP: 373.4 mGycm, Automated exposure control for dose reduction was used. FINDINGS: Pulmonary Artery: There is no evidence for a filling defect within the pulmonary vasculature to sugge st acute pulmonary embolism. The pulmonary artery is of normal size. Lungs/Pleura: No evidence of focal consolidation, pleural effusion or pneumothorax. Airway: Large airways are patent. Antibiotic right upper lobe bronchus originating off the trachea. Heart: Heart is within normal limits for size. Vasculature: No evidence of aortic aneurysm. Mediastinum: No gross evidence of adenopathy. Musculoskeletal: No acute osseous abnormalities Soft Tissues/lymph nodes: Unremarkable. Lower neck: No significant findings. Upper Abdomen: No significant findings. IMPRESSION: 1. No evidence of pulmonary embolism. 2. 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 [facility], Workstation: [id number], 03/14/2024 1:45 PM
[2024-03-14 15:23] VITALS: BP 143/89; PULSE 90; RESP 20; TEMP 98.1
== END 2024-03-14 15:22 | disposition home or self-care (01) ==
LOC: EC 10:48
DX: M94.0 Chondrocostal junction syndrome [Tietze] (principal); Z88.8 Allergy status to other drugs, medicaments and biological substances
CPT/HCPCS: 36415; 93005; 80048; 84484; 85025; 71046; 71275; 99285; 96374; 96375; J2270; J1885; Q9967